=== PATIENT | female | born 1940 | race Caucasian/White ===

== ENCOUNTER 2020-09-15 07:50 | Day surgery (SDC) | payer MEDICARE, BC ==
[2020-09-15] MEDS ORDERED: Propofol 200 MG/20 ML SDV IV ONE (07:51)
[2020-09-15] MEDS ORDERED: Sodium Chloride 0.9% 1,000 ML IV SCH (08:00)
[2020-09-15] MEDS ORDERED: Sodium Chloride 0.9% 10 ML Syringe FLUSH PRN (08:00)
[2020-09-15] MEDS ORDERED: Propofol 200 MG/20 ML SDV ONE ×2 (08:49→09:27)
--- NOTE | 2020-09-15 09:55 | PCM.PRNOTE ---
- Free Text/Narrative Note: PROCEDURE PERFORMED: Colonoscopy with biopsy and polypectomy PRE-PROCEDURE DIAGNOSIS/INDICATION FOR PROCEDURE: Prior evaluation note of chronic diarrhea, though on history primary concern is regarding encopresis 1-2 times daily without overt diarrhea or fecal frequency; also notably on chronic magnesium therapy for hypomagnesemia with a recent increase in dose. Last colonoscopy (and EGD) 01/01/2009 noting only diverticulosis. CONSENT: Informed consent was obtained prior to the procedure after discussion of the r isks (including pain, bleeding, infection, perforation, missed polyps, inability to completely remove polyps or complete procedure necessitating repeat colonoscopy, adverse reaction to anesthesia, cardiovascular event), benefits and alternatives and expected outcomes. The patient expressed understanding and wished to proceed. Verbal consent given and consent form signed. PROCEDURAL PAUSE: Completed SEDATION: Per anesthesia DESCRIPTION OF PROCEDURE: Patient was placed in the left lateral decubitus position. After adequate sedation and anesthetic was administered, a rectal exam was performed revealing poor sphincter tone. A lubricated Olympus Video Colonoscope was inserted into the rectum and air insufflation was performed. The colonoscope was advanced through the rectum, sigmoid, descending, transverse, and ascending colon without difficulties. The cecum was reached and the ileocecal valve as well as the appendiceal orifice were identified and pictorially documented. After adequate visualization of the cecum, the scope was withdrawn, giving 360-degree views of the colonic mucosa with the following findings noted: Ileocecal valve: Normal Cecum: Normal Ascending colon: One 8mm polyp removed with hot snare; subsequent complete polypoid tissue removal and hemostasis noted. Hepatic flexure: Normal Transverse colon: Normal Splenic flexure: Normal Descending colon: Normal Sigmoid colon: Rare small diverticula without evidence of bleeding or inflammation. Rectum: Normal Random biopsies to evaluate for microscopic colitis obtained in the ascending and descending colon. The scope was straightened, air suction performed, and the scope withdrawn without complication. Preparation adequacy [place] Bowel Prep 03/02. IMPRESSION: Colonoscopy performed revealing: - One 8mm polyp in the ascending colon, pathology now pending - Random biopsies obtained to evaluate for microscopic colitis, pathology now pending - Rare sigmoid diverticulosis - Poor rectal tone PLAN: Will contact the patient when pathology results received. Consider future anal manometry and referral to Dr. Meek, [facility] general surgery, for evaluation for possible sacral neurostimulator placement for primary concern of encopresis. Also schedule upcoming visit at [facility] procedure clinic with myself or Dr. Emmett Francis for evaluation and management of chronic knee and hip pain.
== END 2020-09-15 11:30 | disposition home or self-care (01) ==
LOC: KA.SDS 07:50
PROVIDERS: ATTEND Family Medicine
DX: D12.6 Benign neoplasm of colon, unspecified (principal); K52.9 Noninfective gastroenteritis and colitis, unspecified; E83.42 Hypomagnesemia; K57.30 Diverticulosis of large intestine without perforation or abscess without bleeding; I12.9 Hypertensive chronic kidney disease with stage 1 through stage 4 chronic kidney disease, or unspecified chronic kidney disease; E11.22 Type 2 diabetes mellitus with diabetic chronic kidney disease; N18.9 Chronic kidney disease, unspecified; E78.5 Hyperlipidemia, unspecified; Z79.899 Other long term (current) drug therapy; Z79.82 Long term (current) use of aspirin; Z88.8 Allergy status to other drugs, medicaments and biological substances; Z88.5 Allergy status to narcotic agent; Z88.2 Allergy status to sulfonamides; Z88.1 Allergy status to other antibiotic agents; Z98.890 Other specified postprocedural states
CPT/HCPCS: 00812; 82962; 88305; J2704; J7030

== ENCOUNTER 2022-08-14 23:42 | Emergency (ER) | payer MEDICARE, BC ==
[2022-08-14] MEDS ORDERED: Ondansetron 4 MG/2 ML SDV IVPUSH ONE (23:59)
[2022-08-14] MEDS ORDERED: HYDROmorphone 1 MG/ML Syringe IVPUSH ONE (23:59)
[2022-08-15] MEDS ORDERED: Sodium Chloride 0.9% 10 ML Syringe FLUSH PRN (00:01)
[2022-08-15 00:34] LABS: ANION GAP 10.6 mmol/L (5-15); CHLORIDE,CL 103 mmol/L (98-107); SODIUM,NA 140 mmol/L (136-145)
[2022-08-15 00:35] LABS: ESTIMATED GFR 45 mL/min (>=60)
[2022-08-15] MEDS ORDERED: cefTRIAXone 1 GM Vial IVPUSH ONE (00:48)
== END 2022-08-15 01:30 ==
LOC: KA.ED 23:42
DX: S72.042A Displaced fracture of base of neck of left femur, initial encounter for closed fracture (principal); I12.9 Hypertensive chronic kidney disease with stage 1 through stage 4 chronic kidney disease, or unspecified chronic kidney disease; E11.22 Type 2 diabetes mellitus with diabetic chronic kidney disease; N18.9 Chronic kidney disease, unspecified; Z88.5 Allergy status to narcotic agent; Z88.1 Allergy status to other antibiotic agents; Z88.2 Allergy status to sulfonamides; Z79.84 Long term (current) use of oral hypoglycemic drugs; W19.XXXA Unspecified fall, initial encounter
CPT/HCPCS: 80053; 81001; 85025; 87086; 87088; 93005; 93010; 96374; 96375; 99285; 99285-25; J0696; J1170; J2405

== ENCOUNTER 2023-03-30 18:35 | Inpatient (IN) | payer MEDICARE, BC ==
[2023-03-30] MEDS ORDERED: Sodium Chloride 0.9% 10 ML Syringe FLUSH PRN (18:41)
[2023-03-30] MEDS ORDERED: Sodium Chloride 0.9% 1,000 ML IV ONE (18:41)
[2023-03-30] MEDS ORDERED: Ondansetron 4 MG/2 ML SDV IVPUSH ONE (18:46)
[2023-03-30] MEDS ORDERED: Ondansetron 4 MG/2 ML SDV ONE (18:46)
[2023-03-30] MEDS ORDERED: Pantoprazole 40 MG Vial IVPUSH ONE (18:57)
[2023-03-30] MEDS ORDERED: Pantoprazole 80 MG in Sodium Chloride 0.9% 100 ML IV SCH (19:00)
[2023-03-30 19:06] LABS: BASOPHILS ABSOLUTE AUTO 0.04 10^3/uL (0.00-0.10); BASOPHILS PERCENT AUTO 0.3 % (0.0-1.0); EOSINOPHILS ABSOLUTE AUTO 0.01 10^3/uL (0.10-0.30); EOSINOPHILS PERCENT AUTO 0.1 % (1.0-3.0); HEMATOCRIT 42.1 % (37.0-47.0); HEMOGLOBIN 13.1 g/dL (12.0-16.0); IMMATURE GRAN ABSOLUTE AUTO 0.03 10^3/uL (0.00-0.50); IMMATURE GRAN PERCENT AUTO 0.2 % (0.0-5.0); LYMPHOCYTES ABSOLUTE AUTO 0.72 10^3/uL (1.00-4.00); LYMPHOCYTES PERCENT AUTO 5.4 % (20.0-40.0); MEAN CORPUSCULAR HEMOGLOBIN 28.7 pg (27.0-31.0); MEAN CORPUSCULAR HGB CONC 31.1 g/dL (32.0-36.0); MEAN CORPUSCULAR VOLUME 92.1 fL (82.0-92.0); MEAN PLATELET VOLUME 10.2 fL (7.4-10.4); MONOCYTES ABSOLUTE AUTO 0.29 10^3/uL (0.10-0.80); MONOCYTES PERCENT AUTO 2.2 % (2.0-8.0); NEUTROPHILS PERCENT AUTO 91.8 % (50.0-70.0); PLATELET COUNT,PLT 186 10^3/uL (150-400); RED BLOOD CELL COUNT 4.57 10^6/uL (3.80-5.50); RED CELL DISTRIBUTION WIDTH 13.5 % (11.5-14.5); WHITE BLOOD CELL COUNT,WBC 13.39 10^3/uL (5.00-10.00)
[2023-03-30 19:23] LABS: ALBUMIN 3.07 g/dL (3.40-5.00); ANION GAP 11.1 mmol/L (5-15); BILIRUBIN TOTAL 0.4 mg/dL (0.2-1.0); CALCIUM 9.9 mg/dL (8.7-10.3); CARBON DIOXIDE,CO2 33.7 mmol/L (21.0-32.0); CREATININE 1.03 mg/dL (0.51-1.17); EST CRCL DRUG DOSING (CG) 43.21 mL/min; POTASSIUM,K 3.8 mmol/L (3.5-5.1); PROTEIN TOTAL,TP 7.1 g/dL (6.4-8.2)
[2023-03-30] MEDS ORDERED: Iopamidol 755 Mg/ML 100 ML Bottle IV ONE (20:35)
[2023-03-30] MEDS ORDERED: Sodium Chloride 0.9% 50 ML IV SCH (20:45)
[2023-03-30] MEDS ORDERED: Albuterol/Ipratropium 3.0-0.5 MG/3 ML Neb Soln INH PRN (22:11)
[2023-03-30] MEDS ORDERED: Acetaminophen 325 MG Tab PO PRN (22:22)
[2023-03-30] MEDS ORDERED: Acetaminophen/oxyCODONE 325-5 MG Tab PO PRN (22:22)
[2023-03-30] MEDS ORDERED: Ondansetron 4 MG/2 ML SDV IV PRN (22:22)
[2023-03-30] MEDS ORDERED: Sodium Chloride 0.9% 1,000 ML IV SCH (22:30)
[2023-03-30] MEDS ORDERED: Ketorolac 30 MG/ML SDV IVPUSH PRN (23:10)
[2023-03-30] MEDS ORDERED: Enoxaparin 40 MG/0.4 ML Syringe SUBCUT SCH (23:45)
[2023-03-31] MEDS ORDERED: Ketorolac 30 MG/ML SDV IVPUSH PRN (00:01)
[2023-03-31] MEDS: Temazepam 15 MG Cap PO PRN ×2 (02:03→20:18)
[2023-03-31 07:23] LABS: BASOPHILS ABSOLUTE AUTO 0.04 10^3/uL (0.00-0.10); BASOPHILS PERCENT AUTO 0.4 % (0.0-1.0); EOSINOPHILS ABSOLUTE AUTO 0.07 10^3/uL (0.10-0.30); EOSINOPHILS PERCENT AUTO 0.7 % (1.0-3.0); HEMATOCRIT 34.8 % (37.0-47.0); HEMOGLOBIN 10.7 g/dL (12.0-16.0); IMMATURE GRAN ABSOLUTE AUTO 0.02 10^3/uL (0.00-0.50); IMMATURE GRAN PERCENT AUTO 0.2 % (0.0-5.0); LYMPHOCYTES ABSOLUTE AUTO 1.98 10^3/uL (1.00-4.00); LYMPHOCYTES PERCENT AUTO 18.7 % (20.0-40.0); MEAN CORPUSCULAR HEMOGLOBIN 28.7 pg (27.0-31.0); MEAN CORPUSCULAR HGB CONC 30.7 g/dL (32.0-36.0); MEAN CORPUSCULAR VOLUME 93.3 fL (82.0-92.0); MEAN PLATELET VOLUME 9.7 fL (7.4-10.4); MONOCYTES ABSOLUTE AUTO 0.88 10^3/uL (0.10-0.80); MONOCYTES PERCENT AUTO 8.3 % (2.0-8.0); NEUTROPHILS ABSOLUTE AUTO 7.58 10^3/uL (2.50-7.00); NEUTROPHILS PERCENT AUTO 71.7 % (50.0-70.0); PLATELET COUNT,PLT 164 10^3/uL (150-400); RED BLOOD CELL COUNT 3.73 10^6/uL (3.80-5.50); RED CELL DISTRIBUTION WIDTH 13.5 % (11.5-14.5); WHITE BLOOD CELL COUNT,WBC 10.57 10^3/uL (5.00-10.00)
[2023-03-31 07:39] LABS: CARBON DIOXIDE,CO2 34.4 mmol/L (21.0-32.0); CREATININE 1.05 mg/dL (0.51-1.17); EST CRCL DRUG DOSING (CG) 42.39 mL/min; POTASSIUM,K 3.4 mmol/L (3.5-5.1)
[2023-03-31] MEDS: Insulin Regular, Human 100 Units/ML 10 ML Vial SUBCUT SCH ×2 (08:06→17:42)
[2023-03-31] MEDS: Enoxaparin 40 MG/0.4 ML Syringe SUBCUT SCH ×2 (09:20→09:42)
[2023-03-31] MEDS: amLODIPine 5 MG Tab PO SCH (09:20)
[2023-03-31] MEDS: Sertraline 50 MG Tab PO SCH (09:20)
[2023-03-31] MEDS: Multivitamins with Minerals/Iron/Folic Acid/Lycopene Tab PO SCH (09:21)
[2023-03-31] MEDS: Metoprolol Succinate 50 MG Tab.ER PO SCH (09:21)
[2023-03-31] MEDS: busPIRone 10 MG Tab PO SCH ×2 (09:21→20:18)
[2023-03-31] MEDS: ARIPiprazole 5 MG Tab PO SCH (09:21)
[2023-03-31] MEDS: Pantoprazole 40 MG Vial IVPUSH SCH (09:22)
[2023-03-31] MEDS: Sodium Chloride 0.9% 1,000 ML IV SCH (11:53)
[2023-03-31] MEDS: Enoxaparin 100 MG/1 ML Syringe SUBCUT SCH (14:45)
[2023-03-31] MEDS ORDERED: Donepezil 10 MG Tab PO SCH (21:00)
[2023-04-01] MEDS: Sodium Chloride 0.9% 1,000 ML IV SCH ×2 (01:15→14:47)
[2023-04-01] MEDS: Enoxaparin 100 MG/1 ML Syringe SUBCUT SCH ×2 (01:15→14:40)
[2023-04-01 07:02] LABS: HEMATOCRIT 32.8 % (37.0-47.0); HEMOGLOBIN 10.1 g/dL (12.0-16.0); MEAN CORPUSCULAR HEMOGLOBIN 28.5 pg (27.0-31.0); MEAN CORPUSCULAR HGB CONC 30.8 g/dL (32.0-36.0); MEAN CORPUSCULAR VOLUME 92.7 fL (82.0-92.0); MEAN PLATELET VOLUME 9.7 fL (7.4-10.4); PLATELET COUNT,PLT 116 10^3/uL (150-400); RED BLOOD CELL COUNT 3.54 10^6/uL (3.80-5.50); RED CELL DISTRIBUTION WIDTH 13.6 % (11.5-14.5); WHITE BLOOD CELL COUNT,WBC 7.71 10^3/uL (5.00-10.00)
[2023-04-01] MEDS: Sertraline 50 MG Tab PO SCH (08:21)
[2023-04-01] MEDS: amLODIPine 5 MG Tab PO SCH ×2 (08:22→08:25)
[2023-04-01] MEDS: Multivitamins with Minerals/Iron/Folic Acid/Lycopene Tab PO SCH (08:25)
[2023-04-01] MEDS: Metoprolol Succinate 50 MG Tab.ER PO SCH (08:25)
[2023-04-01] MEDS: busPIRone 10 MG Tab PO SCH (08:25)
[2023-04-01] MEDS: ARIPiprazole 5 MG Tab PO SCH (08:27)
[2023-04-01] MEDS: Pantoprazole 40 MG Vial IVPUSH SCH ×2 (08:27→11:20)
== END 2023-04-01 18:25 | DRG 377 ==
LOC: KA.ED 18:35 → KA.MS 20:12
PROVIDERS: ADMIT Family Medicine; ATTEND Family Medicine
DX: K92.0 Hematemesis (principal); K85.90 Acute pancreatitis without necrosis or infection, unspecified; I82.423 Acute embolism and thrombosis of iliac vein, bilateral; G30.9 Alzheimer's disease, unspecified; F02.80 Dementia in other diseases classified elsewhere, unspecified severity, without behavioral disturbance, psychotic disturbance, mood disturbance, and anxiety; N18.9 Chronic kidney disease, unspecified; E78.00 Pure hypercholesterolemia, unspecified; K21.9 Gastro-esophageal reflux disease without esophagitis; I12.9 Hypertensive chronic kidney disease with stage 1 through stage 4 chronic kidney disease, or unspecified chronic kidney disease; M19.90 Unspecified osteoarthritis, unspecified site; F41.9 Anxiety disorder, unspecified; E11.22 Type 2 diabetes mellitus with diabetic chronic kidney disease; R13.19 Other dysphagia; N18.30 Chronic kidney disease, stage 3 unspecified; F32.89 Other specified depressive episodes; K52.9 Noninfective gastroenteritis and colitis, unspecified; Z90.49 Acquired absence of other specified parts of digestive tract; Z88.5 Allergy status to narcotic agent; Z88.2 Allergy status to sulfonamides; Z88.8 Allergy status to other drugs, medicaments and biological substances; Z88.1 Allergy status to other antibiotic agents; Z79.899 Other long term (current) drug therapy
CPT/HCPCS: 36415; 71045; 74177; 80048; 80053; 82947; 83690; 84478; 84484; 85025; 85027; 93010; 93970; 96361; 96374; 96375; 97161-GP; 99284; 99285-25; A9270-GY; C9113; J1650; J2405; J3490; J7030; Q3014; Q9967